=== PATIENT | male | born 1970 | race Caucasian/White ===

== ENCOUNTER 2022-12-18 13:10 | Emergency (ER) | payer OTHER, SELFPAY ==
[2022-12-18 13:20] VITALS: BP 143/90; PULSE 104; RESP 18; TEMP 39.4; O2SAT 98; BMI 32.9
--- NOTE | 2022-12-18 13:42 | CTR_ITS ---
PROCEDURE INFORMATION: Exam: CT Neck With Contrast Exam date and time: 12/18/2022 2:11 PM Age: 52 years old Clinical indication: Other: Swollen tonsils sore throat; Additional info: R/O peritonsillar abscess TECHNIQUE: Imaging protocol: Computed tomography of the neck with contrast. Radiation optimization: All CT scans at this facility use at least one of these dose optimization techniques: automated exposure control; mA and/or kV adjustment per patient size (includes targeted exams where dose is matched to clinical indication); or iterative reconstruction. Contrast material: OMNI 350; Contrast volume: 80 ml; Contrast route: INTRAVENOUS (IV); REPORTING DATA: Count of CT and Cardiac NM exams in prior 12 months: This patient has received 0 known CTs and 0 known cardiac nuclear medicine studies in the 12 months prior to the current study. COMPARISON: No relevant prior studies available. RADIATION DOSE METRICS: Total DLP (mGy-cm): 335.9 FINDINGS: Pituitary gland and sella: The pituitary gland appears mildly enlarged with expansion of the pituitary fossa, particularly on the left. This could be a pituitary mass. Pharynx: There is [id number] fairly symmetric swelling of the parapharyngeal tonsils bilaterally which causes moderate narrowing of the airway at this level. There is no evidence of abscess here or elsewhere in the neck. Larynx: Unremarkable. Epiglottis is normal. Prevertebral and retropharyngeal spaces: Unremarkable. Salivary glands: Normal. Glands are normal in size. Thyroid: Normal. No enlarged or calcified nodules. Lymph nodes: Unremarkable. No lymphadenopathy. Trachea: Visualized trachea is unremarkable. Lungs: Unremarkable as visualized. Bones/joints: Mild C5-C6 degenerative disc disease. Anterior subluxation of the mandibular condyles in the closed mouth position. Soft tissues: See Pharynx finding. CT/CT neck w con* [id number] IMPRESSION: 1. Moderate to marked swelling of both parapharyngeal tonsils moderately narrowing the airway. No abscess. 2. Possible pituitary mass. If this is a newly diagnosed finding, then a pituitary MRI is recommended. This can be done electively. 3. Additional details as above.
--- NOTE | 2022-12-18 13:52 | ED_ITS ---
HPI - Fever General: Chief Complaint: Fever Stated Complaint: swollen tonsils Time Seen by Provider: 12/18/22 13:30 History of Present Illness: Mr. Khan is a 52-year-old man that presents to the emergency department with sore throat, fever, difficulty swallowing. Onset of symptoms 48 hours ago. Patient was seen in the urgent care today and referred to the emergency department for more definitive treatment. Patient has a temp of 103 and tonsillar swelling that is making it difficult to swallow. Patient has been given antibiotics today-Augmentin. Associated symptoms: Reports chills; Deny abdominal pain, flank pain, chest pain, confusion, diarrhea, dysuria, extremity pain, headache(s), nasal congestion, nausea, sinus pain or vomiting Review of Systems General: Reports: 10 or more systems reviewed and unremarkable except in HPI and below Const: Reports: fever(s), chills, body aches, fatigue and malaise; Denies: change in appetite or change in weight Eyes: Denies: change in vision, eye discomfort, eye discharge or eye redness ENMT: Reports: throat pain, enlarged tonsils, odynophagia and hoarseness; Denies: ear or mastoid pain, ear discharge, change in hearing, tinnitus, nasal discharge, nasal congestion, post nasal drip or sinus pain Card: Denies: chest pain, palpitations, irregular heart rhythm, edema, dyspnea on exertion, orthopnea or leg pain with exertion Resp: Denies: dyspnea, productive cough, non-productive cough, wheezing, stridor or chest congestion GI: Denies: abdominal pain, nausea, vomiting, dysphagia, diarrhea, constipation, bloating, GI cramping or hematochezia : Denies: flank pain, dysuria, urinary frequency, urinary urgency, urinary hesitancy, oliguria or hematuria Musc: Denies: neck pain, back pain, extremity pain, joint pain, joint swelling, joint redness, joint warmth or muscle weakness Skin/Breast: Denies: rash, pruritus, erythema, photosensitivity or new lesions Neuro: Denies: headache(s), numbness in extremities, weakness in extremities, sensory changes, lack of coordination, difficulty walking, frequent falls, dizziness, confusion, Slurred speech present, difficulty communicating thoughts, seizure-like activity or involuntary movements Endo: Denies: polyuria, polydipsia or tired all the time Carrillo/Lymph: Denies: easy bruising or easy bleeding Physical Exam Const: COMMON NORMALS: no acute distress, patient oriented x3 and alert GEN ERAL APPEARANCE: cooperative ORIENTATION/CONSCIOUSNESS: Yes awake, Yes oriented to person, Yes oriented to place and Yes oriented to time HENMT: COMMON NORMALS: normocephalic and atraumatic HEAD & SCALP: normocephalic and atraumatic FACE & SINUS: normal facial exam MOUTH: Normal oral and palatal mucosa present THROAT: posterior oropharynx abnormal edema, erythema and exudates; uvula not laterally displaced THROAT IMAGE: 1. Tonsillar swelling With exudate 2. Tonsillar swelling With exudate Eye: COMMON NORMALS: Equal, round and reactive pupils present, EOMs intact bilaterally, conjunctivae normal and no scleral icterus GENERAL EYE: appearance normal, both eyes and all related structures ALIGNMENT: Yes alignment normal PERIORBITAL: periorbital findings normal CONJUNCTIVA: Yes conjunctivae normal PUPIL: Yes Equal, round and reactive pupils present Neck/C-Spine: COMMON NORMALS: full ROM GENERAL: Yes normal visual inspection Lymph: LYMPHATIC: no lymphadenopathy noted Chest: COMMONS NORMALS: normal inspection of the chest Breast/axilla inspection: Yes no chest deformity, asymmetry, normal contours, no nodules, masses, tenderness Resp: COMMON NORMALS: normal respiratory effort, No retractions, No use of accessory muscles and clear to auscultation bilaterally EFFORT & INSPECTION: Yes able to speak in complete sentences and Yes symmetric chest movement AU SCULTATION: clear to auscultation bilaterally Cardio: COMMON NORMALS: regular rate, regular rhythm and Peripheral pulses 2+ throughout RATE: regular rate RHYTHM: regular rhythm PERIPHERAL PULSES: Peripheral pulses 2+ throughout GI: COMMON NORMALS: Normal to inspection, nondistended, normoactive bowel sounds present, Soft to palpation, non-tender and No hepatosplenomegaly present INSPECTION: Yes normal to inspection AUSCULTATION: Yes normoactive bowel sounds PALPATION: Yes Soft to palpation and Yes No hepatosplenomegaly present RECTAL EXAM: Yes deferred Extremity: COMMON NORMALS: normal to inspection GENERAL: Yes normal exam except as noted Neuro: COMMON NORMALS: patient oriented x3 SENSORIUM/ORIENTATION: Yes alert, Yes oriented to person, Yes oriented to place and Yes oriented to time CRANIAL NERVES: Yes CN normal except as noted Psych: COMMON NORMALS: mental status grossly normal, Normal thought process present, cooperative, activity/motor behavior normal, denies homicidal ideation and denies suicidal ideation THOUGHT PROCESS: Normal thought process present Skin: COMMON NORMALS: no rashes or lesions noted, no wounds and turgor normal GENERAL SKIN EXAM: no rashes or lesions noted and turgor normal Course Vital Signs: Vital signs: Vital Signs Temperature 100.8 F H 12/18/22 15:32 Pulse Rate 76 12/18/22 13:58 Respiratory Rate 18 12/18/22 15:00 Blood Pressure 143/90 12/18/22 13:20 Pulse Oximetry 98 12/18/22 13:58 Oxygen Delivery Me thod Room Air 12/18/22 13:20 MDM - Fever Medical Decision Making Differential diagnosis strep pharyngitis, peritonsilar abscess, tonsilar stones. Patient has bilateral tonsilar swelling Patient is a 52-year-old male that came in with tonsillar swelling, sore throat. Reportedly he tested positive for strep pharyngitis. He was started on Augmentin. Here in our emergency department he underwent CT to assess for abscess. Findings included moderate to marked fairly symmetric swelling of the parapharyngeal tonsils bilaterally which causes moderate narrowing of the airway at this level. There is no evidence of abscess here or elsewhere in the neck. Epiglottis is normal. There is an incidental finding of a mildly enlarged pituitary gland that has expansion into the pituitary fossa more on the left. This may be a mass but needs follow-up outpatient. He has a white count of 14,000, creatinine of 1.4 without history, and normal lactic. I reviewed case with Dr. Duff and consulted ENT at [facility](15:45). Miranda Kwong np Has recommended clindamycin 3 times daily and a Medrol Dosepak. As long as patient is comfortable, not experiencing any distress, then he can follow-up outpatient. Patient updated Patient was given Rocephin, dexamethasone, ketorolac. He received a liter bolus Lab Data 12/18/22 14:25 12/18/22 14:[address] 12/18/22 13:42 IMPRESSION: 1. Moderate to marked swelling of both parapharyngeal tonsils moderately narrowing the airway. No abscess. 2. Possible pituitary mass. If this is a newly diagnosed finding, then a pituitary MRI is recommended. This can be done electively. 3. Additional details as above. Laboratory Results WBC 14.19 10^3/uL (3.29-11.43) H 12/18/22 14: RBC 4.06 10^6/uL (3.85-5.65) 12/18/22 14:25 Hgb 13.80 g/dL (11.27-16.99) 12/18/22 14: Hct 39.8 % (37-53) 12/18/22 14: MCV 98.0 fl (82-101) 12/18/22 14:25 MCH 34.0 pg (27-33) H 12/18/22 14: MCHC 34.7 g/dL (30-55) 12/18/22 14: RDW 12.3 % (12.1-15.1) 12/18/22 14: Plt Count 122 10^3/cmm (157-399) L 12/18/22 14: MPV 9.5 fL (7.4-10.4) 12/18/22 14:25 Neut % (Auto) 81.9 % 12/18/22 14: Lymph % (Auto) 7.0 % 12/18/22 14:25 [place] % (Auto) 10.4 % 12/18/22 14:25 Eos % (Auto) 0.0 % 12/18/22 14: Baso % (Auto) 0.1 % 12/18/22 14: Neut # (Auto) 11.62 10^3/uL (1.8-7.7) H 12/18/22 14: Lymph # (Auto) 1.0 10^3/uL (0.8-4.8) 12/18/22 14:25 [place] # (Auto) 1.5 10^3/uL (0.2-0.9) H 12/18/22 14: Eos # (Auto) 0.0 10^3/uL (0.0-0.8) 12/18/22 14:25 Baso # (Auto) 0.0 10^3/uL (0.0-0.1) 12/18/22 14: Nucleated RBC % (auto) 0 % 12/18/22 14: Nucleated RBCs # 0.0 /100WBC 12/18/22 14:25 Sodium 132 mmol/L (136-145) L 12/18/22 14:25 Potassium 3.8 mmol/L (3.5-5.1) 12/18/22 14:25 Chloride 97 mmol/L (98-107) L 12/18/22 14:25 Carbon Dioxide 24 mmol/L (22-29) 12/18/22 14:25 Anion Gap 14.8 (5-19) 12/18/22 14:25 BUN 14 mg/dL (6-20) 12/18/22 14:25 Creatinine 1.4 mg/dL (0.7-1.2) H 12/18/22 14:25 GFR Calculation 53.2 mL/min (90-130) L 12/18/22 14:25 Glucose 119 mg/dL (65-115) H 12/18/22 14:25 Calculated Osmolality 276 mOsm/kg (285-295) L 12/18/22 14:25 Lactic Acid 1.1 mmol/L (0.5-2.2) 12/18/22 14:25 Calcium 8.4 mg/dL (8.5-10.5) L 12/18/22 14:25 Total Bilirubin 0.6 mg/dL (0.15-1.2) 12/18/22 14:25 AST 16 U/L (0-40) 12/18/22 14:25 ALT 21 U/L (0-41) 12/18/22 14:25 Alkaline Phosphatase 58 U/L (40-130) 12/18/22 14:25 Total Protein 6.7 g/dL (6.6-8.7) 12/18/22 14:25 Albumin 3.8 g/dL (3.5-5.2) 12/18/22 14:25 Globulin 2.9 g/dL (1.3-4.6) 12/18/22 14:25 All radiology interpretation(s) finalized by discharge Discharge Plan Discharge Patient Disposition: Home Clinical Impression: Acute streptococcal pharyngitis Condition: Stable Prescriptions: New clindamycin HCl [Cleocin HCl] 300 mg capsule 300 mg PO TID 10 Days Qty: 30 0RF methylprednisolone [Medrol (Beto)] 4 mg tablets,dose pack See Rx Instructions .ROUTE .COMPLEX Qty: 21 0RF Rx Instructions: orally per package directions No Action levothyroxine 100 mcg tablet PO amoxicillin-pot clavulanate 875-125 mg tablet 1 tab PO BID 10 Days Qty: 20 0RF Discharge Orders: Discharge ED (Routine); Ordered 12/18/22 Ordered By: Ara Lewis Discharge Diet: Advance as tolerated Discharge Activity: Resume usual activity Patient Instructions: Strep Throat (ED), Pain Management Activity Restrictions/Additional Instructions: As long as you are tolerating the pain and you do not experience any difficulty swallowing or breathing then you can be managed outpatient with clindamycin and a Medrol Dosepak (steroids). This was ENTs recommendation. Should you develop any difficulty with swallowing or breathing then you need to be reevaluated promptly. You need to follow-up with your primary care doctor when you return home. One of the findings on the CT included a mildly enlarged pituitary gland. This may be a normal variant or could be abnormal. An MRI is likely warranted. When discussing this visit with your primary care doctor you also need to bring up that your creatinine was 1.4. This is elevated and abnormal. This may be due to the your acute illness but will need to be rechecked. Coding Level of Care Code ED Client Account Assistant for Kelsi Bell
[2022-12-18 13:58] VITALS: PULSE 76; RESP 18; O2SAT 98
[2022-12-18] MEDS: acetaminophen 500 mg Tablet 1000 MG PO (14:03)
[2022-12-18] MEDS: sodium chloride 0.9% 1,000 ML 999 ML IV (14:03)
[2022-12-18] MEDS: iohexol 350 mg/mL 500 mL Btl (per mL) IV (14:13)
[2022-12-18 14:43] LABS: Basophils % 0.1 %; Hematocrit 39.8 % (37-53); Mean Corpuscular HGB Conc 34.7 g/dL (30-55); Mean Platelet Volume 9.5 fL (7.4-10.4); Monocytes # 1.5 10^3/uL (0.2-0.9); Monocytes % 10.4 %; Neutrophils # 11.62 10^3/uL (1.8-7.7); Neutrophils % 81.9 %; Nucleated Red Blood Cells % 0 %; Platelet Count 122 10^3/cmm (157-399); Red Blood Count 4.06 10^6/uL (3.85-5.65); Red Cell Distribution Width 12.3 % (12.1-15.1); White Blood Count 14.19 10^3/uL (3.29-11.43)
[2022-12-18 15:00] VITALS: RESP 18
[2022-12-18 15:13] LABS: Alanine Aminotransferase 21 U/L (0-41); Albumin Level 3.8 g/dL (3.5-5.2); Alkaline Phosphatase 58 U/L (40-130); Anion Gap 14.8 (5-19); Aspartate Amino Transferase 16 U/L (0-40); Blood Urea Nitrogen 14 mg/dL (6-20); Calcium 8.4 mg/dL (8.5-10.5); Carbon Dioxide 24 mmol/L (22-29); Chloride 97 mmol/L (98-107); Globulin 2.9 g/dL (1.3-4.6); Glomerular Filtration Rate 53.2 mL/min (90-130); Glucose 119 mg/dL (65-115); Lactic Sepsis W/Reflex 1.1 mmol/L (0.5-2.2); Osmolality Calculated 276 mOsm/kg (285-295); Potassium 3.8 mmol/L (3.5-5.1); Sodium 132 mmol/L (136-145); Total Bilirubin 0.6 mg/dL (0.15-1.2); Total Protein 6.7 g/dL (6.6-8.7)
[2022-12-18 15:32] VITALS: TEMP 38.2
[2022-12-18] MEDS: dexamethasone 10 mg/mL INJ IVP (16:08)
[2022-12-18] MEDS: ketorolac 30 mg/mL INJ 15 MG IVP (16:08)
[2022-12-18] MEDS: cefTRIAXone 1,000 MG in sodium chloride 0.9% (plus) 50 ML 100 MG IV (16:09)
[2022-12-18 17:08] VITALS: PULSE 92; RESP 18; O2SAT 98
== END 2022-12-18 17:09 | disposition home or self-care (01) ==
PROVIDERS: Emergency Provider Nurse Practitioner
DX: J02.0 Streptococcal pharyngitis (principal); Z11.52 Encounter for screening for COVID-19
CPT/HCPCS: 36415; 70491; 80053; 83605; 85025; 87400; 87426; 87880; 96374; 96375; 99285; J0696; J1100; J1885; J7030; Q9967